=== PATIENT | male | born 2000 | race Caucasian/White ===

== ENCOUNTER 2020-12-15 21:41 | Inpatient (IN) | payer MEDICAID, OTHER ==
--- NOTE | 2020-12-15 21:50 | ED ---
Psych HPI - General Source: police Mode of arrival: EMS <Spencer Gillespie - Last Filed: 12/15/20 23:27> <Kale Aguilar - Last Filed: 12/16/20 05:30> - General Chief Complaint: Psychiatric Symptoms Stated Complaint: Mental Health Time Seen by Provider: 12/15/20 21:49 - History of Present Illness Initial Comments: 20-year-old male presenting to the emergency department for psychiatric evaluation. Patient is petition and brought to the emergency department by police department. Mother is also present to answer additional questions. Patient supposedly has called the mother and stated that he will jump off a bridge. Patient has supposedly been having suicidal thoughts over the past year with worsening depression. Patient was not initially cooperative and triaged with the nines answering questions. Patient states that he is "wasting everyone's time". Patient not commenting whether having any homicidal, suicidal thoughts or ideation. He is not answering any additional questions. (Spencer Gillespie) - Related Data Home Medications Medication Instructions Recorded Confirmed Buspar(Unknown Dose) 1 tab PO HS 12/15/20 12/16/20 Effexor Xr(Unknown Dose) 1 tab PO HS 12/15/20 12/16/20 Lexapro(Unknown Dose) 1 tab PO HS 12/15/20 12/16/20 Allergies Allergy/AdvReac Type Severity Reaction Status Date / Time No Known Allergies Allergy Verified 12/16/20 02:06 Review of Systems ROS Other: All systems not noted in ROS Statement are negative. <Spencer Gillespie - Last Filed: 12/15/20 23:27> ROS Other: All systems not noted in ROS Statement are negative. <Kale Aguilar - Last Filed: 12/16/20 05:30> ROS Statement: Those systems with pertinent positive or pertinent negative responses have been documented in the HPI. Past Medical History Past Medical History: No Reported History History of Any Multi-Drug Resistant Organisms: None Reported Past Surgical History: No Surgical Hx Reported Past Psychological History: Unable to Obtain Smoking Status: Never smoker Past Alcohol Use History: None Reported Past Drug Use History: Marijuana <Spencer Gillespie - Last Filed: 12/15/20 23:27> General Exam Limitations: no limitations General appearance: alert, in no apparent distress Head exam: Present: atraumatic, normocephalic, normal inspection Eye exam: Present: normal appearance, PERRL, EOMI Pupils: Present: normal accommodation ENT exam: Present: normal exam, normal oropharynx, mucous membranes moist Neck exam: Present: normal inspection, full ROM Respiratory exam: Present: normal lung sounds bilaterally. Absent: respiratory distress, wheezes, rales, rhonchi, stridor Cardiovascular Exam: Present: regular rate, normal rhythm, normal heart sounds Extremities exam: Present: normal inspection, full ROM Back exam: Present: normal inspection, full ROM Neurological exam: Present: alert, oriented X3, normal gait Psychiatric exam: Present: normal affect, agitated Skin exam: Present: warm, dry, intact, normal color <Spencer Gillespie - Last Filed: 12/15/20 23:27> General appearance: alert, in no apparent distress Head exam: Present: atraumatic, normocephalic, normal inspection Eye exam: Present: normal appearance, PERRL, EOMI. Absent: scleral icterus, conjunctival injection, periorbital swelling ENT exam: Present: normal exam, mucous membranes moist Neck exam: Present: normal inspection. Absent: tenderness, meningismus, lymphadenopathy Respiratory exam: Present: normal lung sounds bilaterally Cardiovascular Exam: Present: regular rate, normal rhythm, tachycardia. Absent: clicks GI/Abdominal exam: Present: soft, normal bowel sounds. Absent: distended, tenderness, guarding, rebound, rigid Extremities exam: Present: normal inspection, full ROM, normal capillary refill. Absent: tenderness, pedal edema, joint swelling, calf tenderness Back exam: Present: normal inspection Neurological exam: Present: alert, oriented X3, CN II-XII intact Psychiatric exam: Present: normal affect, normal mood Skin exam: Present: warm, dry, intact, normal color. Absent: rash <Kale Aguilar - Last Filed: 12/16/20 05:30> Course <Kale Aguilar - Last Filed: 12/16/20 05:30> Vital Signs 12/15/20 12/16/20 21:42 00:44 Temperature 97.7 F 98.2 F Pulse Rate 112 H Pulse Rate [ 62 Right] Respiratory 20 15 Rate Blood Pressure 127/80 Blood Pressure 108/80 [Right Arm] O2 Sat by Pulse 99 Oximetry - Reevaluation(s) Reevaluation #1: Medical record is reviewed Patient was made medically clear for psychiatric evaluation (Kale Aguilar) Medical Decision Making <Spencer Gillespie - Last Filed: 12/15/20 23:27> <Kale Aguilar - Last Filed: 12/16/20 05:30> - Medical Decision Making 20-year-old male presents to the emergency department for psychiatric evaluation. Patient is petition and brought by the police. At this time, patient care will be signed off to (Spencer Gillespie) 20 male who was seen and evaluated psychiatry, patient is petition started will be admitted for psychiatric evaluation and treatment (Kale Aguilar) - Lab Data Lab Results 12/15/20 12/15/20 12/15/20 Range/Units 22:11 22:15 22:15 Urine Color Yellow Urine Appearance Clear (Clear) Urine pH 6.5 (5.0-8.0) Ur Specific [place] 1.029 (1.001-1.035) Urine Protein Negative (Negative) Urine Glucose (UA) Negative (Negative) Urine Ketones Negative (Negative) Urine Blood Negative (Negative) Urine Nitrite Negative (Negative) Urine Bilirubin Negative (Negative) Urine Urobilinogen <2.0 (<2.0) mg/dL Ur Leukocyte Esterase Negative (Negative) Urine Opiates Screen Not Detected (NotDetected) Ur Oxycodone Screen Not Detected (NotDetected) Urine Methadone Screen Not Detected (NotDetected) Ur Propoxyphene Screen Not Detected (NotDetected) Ur Barbiturates Screen Not Detected (NotDetected) U Tricyclic Antidepress Not Detected (NotDetected) Ur Phencyclidine Scrn Not Detected (NotDetected) Ur Amphetamines Screen Not Detected (NotDetected) U Methamphetamines Scrn Not Detected (NotDetected) U Benzodiazepines Scrn Not Detected (NotDetected) Urine Cocaine Screen Not Detected (NotDetected) U Marijuana (THC) Screen Detected H (NotDetected) Coronavirus (PCR) Not Detected (Not Detectd) Disposition <Spencer Gillespie - Last Filed: 12/15/20 23:27> Is patient prescribed a controlled substance at d/c from ED?: No <Kale Aguilar - Last Filed: 12/16/20 05:30> Clinical Impression: Depression, Suicidal ideation Disposition: TRANSFER TO PSYCH HOSP/UNIT Condition: Fair
[2020-12-15 22:48] LABS: Amphetamine Screen,Urine Not Detected (NotDetected); Barbiturate Screen,Urine Not Detected (NotDetected); Benzodiazepines Screen,Urine Not Detected (NotDetected); Cocaine Screen,Urine Not Detected (NotDetected); Methadone Screen, Urine Not Detected (NotDetected); Opiate Screen,Urine Not Detected (NotDetected); Oxycodone Screen, Urine Not Detected (NotDetected); Phencyclidine Screen,Urine Not Detected (NotDetected); Tricyclic Antidepressant,Urine Not Detected (NotDetected); Urn Cannabinoid Scrn Detected (NotDetected)
[2020-12-16] MEDS ORDERED: ACETAMINOPHEN TAB 325 MG TAB PO PRN (00:36)
[2020-12-16] MEDS ORDERED: MAGNESIUM HYDROXIDE 2,400 MG/10 ML CUP PO PRN (00:36)
[2020-12-16] MEDS ORDERED: MAG HYDROX/AL HYDROX/SIMETH 30 ML CUP PO PRN (00:36)
[2020-12-16] MEDS ORDERED: LORazepam 1 MG TAB PO PRN (00:36)
[2020-12-16] MEDS ORDERED: LORazepam 2 MG/ML INJ IM PRN ×2 (00:40→02:36)
[2020-12-16] MEDS ORDERED: HALOPERIDOL LACTATE 5 MG/ML 1 ML VIAL IM PRN ×2 (00:42→02:34)
[2020-12-16] MEDS ORDERED: haloperidoL 1 MG TAB PO PRN (00:42)
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
[2020-12-16 02:21] LABS: Appearance,Urine Clear (Clear); Bilirubin,Urine Negative (Negative); Blood,Urine Negative (Negative); Color,Urine Yellow; Glucose,Urine (UA) Negative (Negative); Ketones,Urine Negative (Negative); Leukocyte Esterase,Urine Negative (Negative); Nitrite,Urine Negative (Negative); PH, Urine 6.5 (5.0-8.0); Protein,Urine Negative (Negative); Specific Gravity,Urine 1.029 (1.001-1.035); Urobilinogen,Urine <2.0 mg/dL (<2.0)
[2020-12-16] MEDS ORDERED: haloperidoL 5 MG TAB PO PRN (02:34)
[2020-12-16] MEDS: LORazepam 1 MG TAB PO PRN (10:58)
[2020-12-16 13:52] VITALS: BMI 18.5
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
[2020-12-17 08:52] LABS: Basophils # (A) 0.1 k/uL (0-0.2); Basophils % (A) 1 %; Eosinophils % (A) 1 %; HCT 50.1 % (39.0-53.0); HGB 16.7 gm/dL (13.0-17.5); Lymphocytes # (A) 0.9 k/uL (1.0-4.8); Lymphocytes % (A) 17 %; MCH 29.5 pg (25.0-35.0); MCHC 33.2 g/dL (31.0-37.0); MCV 88.8 fL (80.0-100.0); Mean Platelet Volume 8.2; Monocytes # (A) 0.3 k/uL (0-1.0); Monocytes % (A) 6 %; Neutrophils # (A) 3.9 k/uL (1.3-7.7); Neutrophils % (A) 75 %; Platelet Count 195 k/uL (150-450); RBC 5.64 m/uL (4.30-5.90); RDW 12.3 % (11.5-15.5); WBC 5.3 k/uL (3.8-10.6)
[2020-12-17 09:03] LABS: ALT 17 U/L (4-49); AST 31 U/L (17-59); African American GFR (CKD) >90 (>60 ml/min/1.73 sqM); Albumin 5.1 g/dL (3.5-5.0); Alkaline Phosphatase 109 U/L (38-126); Anion Gap 12 mmol/L; Blood Urea Nitrogen 19 mg/dL (9-20); Calcium 10.4 mg/dL (8.4-10.2); Carbon Dioxide 26 mmol/L (22-30); Chloride 101 mmol/L (98-107); Cholesterol 148 mg/dL (<200); Glucose 84 mg/dL (74-99); HDL Cholesterol 63 mg/dL (40-60); LDL Cholesterol,Calculated 75 mg/dL (0-99); Non-African American GFR(CKD) >90 (>60 ml/min/1.73 sqM); Potassium 4.8 mmol/L (3.5-5.1); Sodium 139 mmol/L (137-145); Total Bilirubin 1.4 mg/dL (0.2-1.3); Total Protein 8.6 g/dL (6.3-8.2); Triglycerides 51 mg/dL (<150)
[2020-12-17] MEDS ORDERED: traZODone HCL 50 MG TAB PO PRN (12:51)
[2020-12-17] MEDS: SERTRALINE 25 MG TAB PO SCH (13:49)
[2020-12-17] MEDS: ARIPiprazole 2 MG TAB PO SCH (13:49)
--- NOTE | 2020-12-17 13:56 | P.PN ---
Progress Note - Text Progress Note Date: 12/17/20 Subjective: Patient was seen today as a cross coverage for Dr. Martin. The patient was evaluated, chart reviewed, case discussed with the treatment team. Patient reports interrupted sleep last night, and appetite was reported as " much better today ". Patient has not been going to groups and other unit activities. The patient agreed to start on medications patient presented today with more organized thoughts and speech and he was fully oriented to time, person, place, and situation. Reports feeling more adaptive to the hospital stay and addressed depression symptoms but denies suicidal ideation. Denies any hallucinations, paranoid ideation, or delusions. No report of manic symptoms currently or in the past. Reports previous treatment for depression but mentioned he was on lithium before and he tried Prozac and Zoloft at one point in the past. Reports most recent medications he was taking before this hospitalization where Xanax to help with the sleep and blood pressure medication. Discussed medications to help with mood stabilization and antidepressant medic ations. He agreed to start on Abilify and Zoloft and he would use trazodone as needed to help with insomnia. Objective: Vitals has been reviewed. Mental status examination; Appearance: Appears stated age, disheveled, better groomed, average body built, and no specific features. Gait/ posture: Steady gait, normal arm swinging, no abnormal movements, with relaxed posture. Attitude and Behavior: Better engaged, partially cooperative, better eye contact during course of interview. Motor Activity: Normal psychomotor activity. Speech: Not spontaneous, abnormal rate, rhythm, and articulation. Increased volume. To some degree pressured. Mood: Depressed Affect: Restricted Thought process: Linear, goal-directed Thought content: No report of delusions, no report of suicidal thoughts, denies homicidal thoughts Perception: Denies visual hallucinations Alertness: No impairment. Concentration: Impaired Orientation: Oriented to time, place, person, and situation Insight regarding psychiatric condition: Improved Judgment regarding daily activities and social situation: Improved Impulse control: Fair Assessment: Unspecified mood disorder Rule out major depressive disorder, recurrent, severe Plan: Continue inpatient level of care due to need for further monitoring and stabilization Precautions: Continue 15 minutes check for safety. Consider medical consultation if any acute medical issues arise. Provide the patient individual, group therapy, substance use disorder counseling to give better insight and learn coping skills. Medications: Will start Abilify 2 mg daily for mood stabilization. Start Zoloft 25 mg daily for depression and anxiety symptoms. Start trazodone 50 mg at bedtime as needed for insomnia. Continue as needed medications for psychiatric emergencies including psychosis, agitation and anxiety. Continue non-psychiatric medications for medical conditions as recommended by the medical team. Discharge patient to OUTPATIENT services upon a stabilization
[2020-12-18] MEDS: ARIPiprazole 2 MG TAB PO SCH (08:59)
[2020-12-18] MEDS: SERTRALINE 25 MG TAB PO SCH (08:59)
--- NOTE | 2020-12-18 12:26 | P.PN ---
Progress Note - Text Progress Note Date: 12/18/20 Clinical Problems: Suicidal ideation, adjustment disorder with disturbance of mood and conduct, rule out major depressive disorder, rule out obsessive- compulsive disorder, rule out autism spectrum disorder, cannabis use disorder Interim history: I reviewed the medical record, interviewed the patient and discuss his treatment and treatment plan during team meeting. I also spoke with his mother, Sarah, on the telephone. He is a 20-year-old male admitted to the psychiatric unit involuntarily. The police lieutenant patrol completed the petition after [place] the water bridge. He agreed to a voluntary admission. He described increasing depression as result of a breakup of a long-term relationship. They early last year but have been in contact with each other intermittently. He expressed hopes that they would have reconciled until he learned that his ex-girlfriend was dating someone else. He talked about asking his mother to reach out to his ex-girlfriend. Apparently his mother went to her home. The girlfriend became angry and refused to have any further contact with Marcus. He became distraught when his mother informed him of the ex- girlfriends feelings. He drove to the [place] where the police found him and brought him to the emergency room. His mother stated that he has always been "odd". As a very young child he showed fixated interests in unusual objects. For example, he was fixated with sewer bricklayer grates, automobiles and large air-conditioning systems. He remained fixated with automobiles until high school. His mother also described as having difficulty relating to other children his age. He complained that the children were "picking on him." At the urging of his counselors and teachers his mother brought him for mental health treatment when he was in grade school. The teachers apparently believed that he had an autistic spectrum disorder. His mother did not follow through with recommendation for him to be evaluated for autistic spectrum disorder at the [facility]. He had difficulty with attention and concentration throughout school. He was diagnosed with an ADHD and treated with psychostimulants. He also met with a therapist for "for many years." As result of his unusual behavior and difficulty with concentration and attention this school placed in a special education program. In middle school he was admitted to [facility] for what he described was behavioral problems. His mother's believed he had an adverse reaction to [employer] where he became preoccupied with school mass shootings (this was the time of the [place] shootings). His mother described him as having current problem chronic problems with relationships and chronic poor self history. His mood and esteemed change dramatically after he met his ex-girlfriend. Since the breakup he has become more despondent. He has made repeated attempts to reconcile. Mother stated that he frequently drives past to girlfriend's home and sometimes maher his car outside her home. He perseverates and obsessiveness about the ex-girlfriend and the relationship. She admitted that at his behest as she went to the girlfriend requesting that the girlfriend respond to Marcus's telephone calls or text messages. His mother highlighted his fixations on interest that were abnormal for his age and described behaviors suggestive of deficits in developing an understanding relationships. However, she does describe impairments and nonverbal communication, repetitive or stereotyped motor movements, and flexibility of her teens or sensitivity to sensory input. He described an obsessional preoccupation with the ex-girlfriend but denied experiencing other obsessions or compulsions. Mental status exam: He presented as a thin casually groomed 20-year-old male who looked his stated age. He made eye contact and attempted to interview. He had no distinction features are prominent physical abnormalities. He had a blunted facial expression. He was alert and oriented to person, place and time. He was restless throughout the interview and was frequently wringing his hands (although he denied feeling anxious). His speech was spontaneous with normal rate and rhythm. His affect was anxious but control. He denied current suicidal ideation and wishes. He denied homicidal ideation. He expressed feelings of hopelessness and helplessness are regard to the ex-relationship. Did not express ideas reference, paranoid ideation or delusions. His thinking was abstract and associations were coherent, logical and goal directed. He denied hallucinations did not appear to responding to internal stimuli. Assessment: He is a 20-year-old male admitted to the psychiatric unit with depression and suicidal ideation that developed in the context of a breakup of a long-term relationship. His history is significant for impairments in concentration and attention, poor school performance and behavior suggestive of an autistic spectrum disorder. The leg issues are likely related to his difficulty accepting the breakup of his interpersonal relationship. Plan: Continue voluntary admission. Safety precautions. Continue Abilify 2 mg daily and Desyrel 25 mg at bedtime when necessary for sleep. Continue Zoloft 25 mg daily and titrated according to clinical response and tolerance. Continue Ativan and Haldol when necessary for agitation or aggression. Social work to coordinate discharge and aftercare including referral for outpatient individual therapy. Encourage participation in therapeutic groups and activities. Evaluate clinical status response to treatment daily basis.
[2020-12-19] MEDS: LORazepam 1 MG TAB PO PRN (03:17)
[2020-12-19] MEDS ORDERED: LORazepam 1 MG TAB PO PRN (08:36)
[2020-12-19] MEDS ORDERED: LORazepam 2 MG/ML INJ IM PRN (08:36)
[2020-12-19] MEDS: SERTRALINE 25 MG TAB PO SCH (08:41)
[2020-12-19] MEDS: ARIPiprazole 2 MG TAB PO SCH (08:41)
--- NOTE | 2020-12-19 11:26 | P.PN ---
Progress Note - Text Progress Note Date: 12/19/20 Clinical Problems: Suicidal ideation (resolved), adjustment disorder with disturbance of mood and conduct, rule out major depressive disorder, rule out obsessive-compulsive disorder, rule out autism spectrum disorder, cannabis use disorder Interim history: I reviewed the medical record, interviewed the patient and discuss his treatment and treatment plan during team meeting. He denied feeling depressed or having thoughts of or suicide. He feels much less distressed than on admission and is looking forward to resuming his life. We talked about his obsessive preoccupation with a his ex-girlfriend. He overtly acknowledged that he needs to accept the end of the relationship but dur ing the interview he appeared ambivalent. Several times he alleged that after the breakup they were able to maintain a "cordial relationship." He is not been attending therapeutic groups and activities. He slept 7 hours last night. He complained that he feels "uncomfortable" in group activities. He denied side effects to the current medications-sertraline and Abilify Mental status exam: He presented as a thin casually groomed 20-year-old male who looked his stated age. He made eye contact and attempted to interview. He had no distinguishing features or prominent physical abno rmalities. He had a wanted but bright facial expression. He was alert and oriented to person, place and time. He restless and did not appear tense or tremulous. His speech was spontaneous with normal rate and rhythm. His affect stable and appropriate. He denied current suicidal ideation and wishes. He denied homicidal ideation. He expressed feelings of hopelessness and helplessness are regard to the ex-relationship. He did not express ideas reference, paranoid ideation or delusions. His thinking was abstract and associations were coherent, logical and goal directed. He denied hallucinations did not appear to responding to internal stimuli. Assessment: Overall is much improved from admission. Plan: Continue voluntary admission. Safety precautions. Continue Abilify 2 mg daily and Desyrel 25 mg at bedtime when necessary for sleep. Increase Zoloft to 50 mg mg daily and titrated according to clinical response and tolerance. Continue Ativan and Haldol when necessary for agitation or aggression. Social work to coordinate discharge and aftercare including referral for outpatient individual therapy. Encourage participation in therapeutic groups and activities. Evaluate clinical status response to treatment daily basis. Plan for discharge on 12/20/2020
[2020-12-20 05:16] LABS: Urine Alcohol Negative (Negative); Urine Barbiturate Negative (Negative); Urine Cocaine Negative (Negative); Urine Methadone Negative (Negative); Urine Opiates Negative (Negative); Urine Phencyclidine Negative (Negative)
[2020-12-20 07:05] VITALS: BP 108/63; PULSE 97; RESP 16; TEMP 98.2
[2020-12-20] MEDS: ARIPiprazole 2 MG TAB PO SCH (08:11)
[2020-12-20] MEDS ORDERED: SERTRALINE 50 MG TAB PO SCH (09:00)
--- NOTE | 2020-12-20 13:43 | P.DS ---
Providers Date of admission: 12/16/20 00:20 Attending physician: Bandar Martin MD Consults: 12/16/20 00:36 Consult Physician Routine Consulting Provider: [facility] Consult Reason/Comments: medical management Do you want consulting provider notified?: Yes Primary care physician: Stated None - Discharge Diagnosis(es) (1) Suicidal ideation Current Visit: Yes Status: Acute (2) Major depressive disorder with single episode, in partial remission Current Visit: Yes Status: Acute Priority: Medium (3) Cannabis use disorder, moderate, dependence Current Visit: Yes Status: Chronic Priority: Medium (4) High-functioning autism spectrum disorder Current Visit: Yes Status: Chronic Priority: Low Hospital Course: HISTORY: He is a 20-year-old male admitted to the psychiatric unit involuntarily. The police chief completed the petition after threatening to jump off the water bridge. He agreed to a voluntary admission. He described increasing depression as result of a breakup of a long-term relationship. They early last year but have been in contact with each other intermittently. He expressed hopes that they would have reconciled until he learned that his ex-girlfriend was dating someone else. He talked about asking his mother to reach out to his ex-girlfriend. Apparently his mother went to her home. The girlfriend became angry and refused to have any further contact with Marcus. He became distraught when his mother informed him of the ex- girlfriends feelings. He drove to the [place] where the police found him and brought him to the emergency room. His mother stated that he has always been "odd". As a very young child he showed fixated interests in unusual objects. For example, he was fixated with sewer pipe sorter grates, automobiles and large air-conditioning systems. He remained fixated with automobiles until high school. His mother also described as having difficulty relating to other children his age. He complained that the children were "picking on him." At the urging of his counselors and teachers his mother brought him for mental health treatment when he was in grade school. The teachers apparently believed that he had an autistic spectrum disorder. His mo ther did not follow through with recommendation for him to be evaluated for autistic spectrum disorder at the [facility]. He had difficulty with attention and concentration throughout school. He was diagnosed with an ADHD and treated with psychostimulants. He also met with a therapist for "for many years." As result of his unusual behavior and difficulty with concentration and attention this school placed in a special education program. In middle school he was admitted to [facility] for what he described was behavioral problems. His mother's believed he had an adverse reaction to Prozac where he became preoccupied with school mass shootings (this was the time of the [place] shootings). His mother described him as having current problem chronic problems with relationships and chronic poor self history. His mood and esteemed change dramatically after he met his ex-girlfriend. Since the breakup he has become more despondent. He has made repeated attempts to reconcile. Mother stated that he frequently drives past to girlfriend's home and sometimes maher his car outside her home. He perseverates and obsessiveness about the ex- girlfriend and the relationship. She admitted that at his behest as she went to the girlfriend requesting that the girlfriend respond to Marcus's telephone calls or text messages. His mother highlighted his fixations on interest that were abnormal for his age and described behaviors suggestive of deficits in developing an understanding relationships. However, she does describe impairments and nonverbal communication, repetitive or stereotyped motor movements, and flexibility of her teens or sensitivity to sensory input. He described an obsessional preoccupation with the ex-girlfriend but denied experiencing other obsessions or compulsions. HOSPITAL COURSE: We admitted him to the psychiatric unit under care of this functional tester typewriters. Provided a copy a biopsychosocial assessment. The road consultant manager of engineering completed initial physical exam and medical history and did not diagnose major medical condition. He was markedly agitated when he arrived on the psychiatric unit Ms. management required IM Haldol and Ativan. We started him on Abilify 2 mg daily and Zoloft titrated dose to 50 mg daily. His overall level of distress decreased substantially after the initial episode of agitation. He attributes latter to his fear of "needles". He showed superficial understanding of circumstances that this hospitalization and talked about accepting loss of his ex-girlfriend. He anticipated therapeutic groups and activities. His mood improved substantially and his anxiety gradually decrease. MENTAL STATUS ON DISCHARGE: The discharge she presented as a thin be speckled 20-year-old male who was pleasant on approach. He made eye contact and attended the interview. He had no distinguishing features are prominent physical abnormalities. He had a bright facial expression. He was alert and oriented to person, place and time. He showed no abnormality of psychomotor activity. His speech was spontaneous with normal rate, rhythm and volume. His affect was bright, stable and appropriate. He denied suicidal ideation and wishes. He denied homicidal ideation. He expressed feelings of hopelessness and helplessness are regard to the ex-relationship. Did not express ideas reference, paranoid ideation or delusions. His thinking was abstract and associations were coherent, logical and goal directed. He denied hallucinations did not appear to responding to internal stimuli. DISPOSITION: He was discharge to his former address. He has an intake appointment at [facility] scheduled for 12/22/2020 at 1:30 PM. His discharge medications included Abilify 2 mg daily and sertraline 50 mg daily. Patient Condition at Discharge: Stable Plan - Discharge Summary New Discharge Prescriptions: New ARIPiprazole [Abilify] 2 mg PO DAILY #30 tab Sertraline [Zoloft] 50 mg PO DAILY #30 tab Discontinued busPIRone HCL 15 mg PO HS Escitalopram [Lexapro] 5 mg PO HS Venlafaxine HCl ER [Effexor XR] 37.5 mg PO HS Discharge Medication List ARIPiprazole [Abilify] 2 mg PO DAILY #30 tab 12/20/20 [Rx] Sertraline [Zoloft] 50 mg PO DAILY #30 tab 12/20/20 [Rx] Follow up Appointment(s)/Referral(s): intake,intake [Other] - 12/22/20 1:30 pm Nonstaff,Physician [REFERRING] - 1-2 days Anson Story DO [REFERRING] - 1-2 Days Activity/Diet/Wound Care/Special Instructions: Activity and diet as tolerated. Avoid the use of street drugs and alcohol. Take all medications as prescribed. When you are in need of refills on your medications please contact your medical provider and/or outpatient psychiatrist to have this done. Please go to scheduled outpatient appointment for aftercare treatment. If symptoms return or become worse, call the crisis line at and/or go to the nearest emergency room for evaluation. Discharge Disposition: HOME SELF-CARE
== END 2020-12-20 16:12 | disposition home or self-care (01) | DRG 885 ==
LOC: EC 21:41 → SUPCPDRO 21:41 → 3MHU 12-16 00:20
PROVIDERS: ADMIT Psychiatry & Neurology Psychiatry; ATTEND Psychiatry & Neurology Psychiatry
DX: F32.4 Major depressive disorder, single episode, in partial remission (principal); R45.851 Suicidal ideations; F12.20 Cannabis dependence, uncomplicated; F90.9 Attention-deficit hyperactivity disorder, unspecified type; F84.0 Autistic disorder; F43.25 Adjustment disorder with mixed disturbance of emotions and conduct; F41.9 Anxiety disorder, unspecified; Z20.822 Contact with and (suspected) exposure to COVID-19
CPT/HCPCS: 80053; 80061; 80306; 81003; 82075; 83036; 84443; 85025; 87635; 99285